=== PATIENT | male | born 1990 | race Caucasian/White ===

== ENCOUNTER 2018-04-24 08:27 | Emergency (ER) | payer OTHER ==
[~2018-04-24] VITALS: Ht 193 cm; Wt 59.0 kg
[~2018-04-24 08:27] MED LIST: Naprosyn500 MG PO
[2018-04-24] MEDS ORDERED: ERYT1OIN BOTHEYES (09:28)
== END 2018-04-24 10:24 | disposition home or self-care (01) ==
LOC: ER 08:27
DX: T65.91XA Toxic effect of unspecified substance, accidental (unintentional), initial encounter (principal); H10.213 Acute toxic conjunctivitis, bilateral
CPT/HCPCS: 99284; J7030